=== PATIENT | female | born 1960 | race Asian ===

== ENCOUNTER 2018-04-27 14:27 | Emergency (ER) | payer OTHER ==
[~2018-04-27] VITALS: Ht 157.5 cm; Wt 64.4 kg
[2018-04-27 14:42] VITALS: BP 158/90; Ht 157.5 cm; Wt 64.4 kg
== END 2018-04-27 16:48 | disposition home or self-care (01) ==
LOC: ED 14:27
DX: S29.011A Strain of muscle and tendon of front wall of thorax, initial encounter (principal); J06.9 Acute upper respiratory infection, unspecified; E05.90 Thyrotoxicosis, unspecified without thyrotoxic crisis or storm; M19.90 Unspecified osteoarthritis, unspecified site; X58.XXXA Exposure to other specified factors, initial encounter; Y93.89 Activity, other specified; Y92.89 Other specified places as the place of occurrence of the external cause; Y99.8 Other external cause status
CPT/HCPCS: Q0092